=== PATIENT | male | born 1945 | race Caucasian/White ===

== ENCOUNTER 2020-12-06 15:03 | Outpatient (CLI) | payer OTHER ==
--- NOTE | 2020-12-06 16:22 | DEXA Report ---
PROCEDURE: Dexa Spine and/or Hip INDICATIONS: DISORDER OF BONE DENSITY STRUCTURE TECHNIQUE: Dual energy x-ray absorptiometry (DXA) was performed on a [employer] System. Regions measur ed are the AP Spine, femoral neck, and if needed forearm. COMPARISON: None. FINDINGS: Lumbar Spine: Bone Mineral Density 1.098 g/cm/cm,T score -1.0, normal Left Hip: Bone Mineral Density 0.784 g/cm/cm,T score -2.2, osteopenia Left Femoral Neck: Bone Mineral Density 0.729 g/cm/cm, T score -2.6, osteoporosis (T score greater or equal to -1.0: NORMAL) (T score from -1.1 to -2.4: OSTEOPENIA) (T score less than or equal to -2.5 to: OSTEOPOROSIS) Impression: Osteoporosis. Patients with diagnosis of osteoporosis or osteopenia should have regular bone mineral density assess ment. For those eligible for Medicare, routine testing is allowed once every 2 years. Testing frequ ency can be increased for patients who have rapidly progressing disease or for those who are receivin g medical therapy to restore bone mass. Reviewed by: Angelina Banda MD, PhD on 12/06/2020 4:21 PM PDT Approved by: Angelina Banda MD, PhD on 12/06/2020 4:21 PM PDT Station ID: [id number]
== END 2020-12-06 15:04 | disposition home or self-care (01) ==
LOC: DI 15:03
PROVIDERS: ATTEND Family Medicine
DX: M81.0 Age-related osteoporosis without current pathological fracture (principal)